=== PATIENT | female | born 1975 | race Caucasian/White ===

== ENCOUNTER 2018-06-27 16:02 | Emergency (ER) | payer SELFPAY ==
[2018-06-27 17:51] LABS: APPEARANCE,URINE SLIGHTLY-CLOUDY; BILIRUBIN,URINE NEGATIVE (NEGATIVE); COLOR,URINE YELLOW; GLUCOSE, URINE NEGATIVE (NEGATIVE); KETONES,URINE NEGATIVE (NEGATIVE); LEUKOCYTE ESTERASE,URINE MODERATE (NEGATIVE); NITRITE,URINE POSITIVE (NEGATIVE); PROTEIN,URINE NEGATIVE (NEGATIVE); URINE SPECIFIC GRAVITY 1.006; UROBILINOGEN,URINE NEGATIVE mg/dL (<2.0)
[2018-06-27] MEDS ORDERED: SULFAMETHOXAZOLE/TRIMETHOPRIM 800-160 MG TABLET PO ONE (18:06)
[2018-06-27 19:22] VITALS: BP 128/73
--- NOTE | 2018-06-27 20:02 | ER Document Report ---
Entered by MOISÉS LINDSEY SCRIBE 06/27/18 1811 Acting as scribe for:YANET MARQUEZ DO ED General - General Chief Complaint: Urinary Problem Stated Complaint: PAINFUL URINATION Time Seen by Provider: 06/27/18 16:53 Primary Care Provider: MAXI BASS MD [NO LOCAL MD] - Follow up as needed Notes: Patient is a 43 year old female with a history of UTIs presents to the emergency department complaining painful urination with associated symptoms of right flank pain, urinary retention and frequency and subjective fevers. She states these symptoms were onset 2 weeks ago and attempted to treat her symptoms at home with cranberry pills and pyridium due to not having any insurance. She reports her right flank pain radiates into her lower abdomen. She states she also began to feel lightheaded today. She states her symptoms are identical to previous UTIs in the past. She denies any vomiting or diarrhea. TRAVEL OUTSIDE OF THE [place] IN LAST 30 DAYS: No - Related Data Allergies/Adverse Reactions: amoxicillin trihydrate [From Augmentin] Allergy (Severe, Verified 06/27/18 16:44) swelling gatifloxacin [From Tequin] Allergy (Severe, Verified 06/27/18 16:44) swelling Potassium Clavulanate * [From Augmentin] Allergy (Severe, Verified 06/27/18 16:44) swelling Past Medical History - General Information source: Patient Last Menstrual Period: 06/06/18 - Social History Smoking Status: Current Every Day Smoker Frequency of alcohol use: None Drug Abuse: None Family History: Malignancy Patient has suicidal ideation: No Patient has homicidal ideation: No GI Medical History: Reports: Hx Gastroesophageal Reflux Disease Musculoskeletal Medical History: Reports Hx Musculoskeletal Deformity, Reports Hx Musculoskeletal Trauma Skin Medical History: Reports Hx Cellulitis Psychiatric Medical History: Reports: Hx Attention Deficit Hyperactivity Disorder, Hx Depression - anxiety Infectious Medical History: Reports: Hx MRSA Past Surgical History: Reports: Hx Breast Surgery, Hx Orthopedic Surgery - carpal tunnel, Hx Tonsillectomy - Immunizations Immunizations up to date: No Hx Diphtheria, Pertussis, Tetanus Vaccination: No Review of Systems - Review of Systems Constitutional: No symptoms reported EENT: No symptoms reported Cardiovascular: See HPI, Lightheaded Respiratory: No symptoms reported Gastrointestinal: No symptoms reported Genitourinary: See HPI Female Genitourinary: No symptoms reported Musculoskeletal: No symptoms reported Skin: No symptoms reported Hematologic/Lymphatic: No symptoms reported Neurological/Psychological: No symptoms reported -: Yes All other systems reviewed and negative Physical Exam - Vital signs Vitals: Temp Pulse Resp BP Pulse Ox 97.6 F 95 16 129/73 H 99 06/27/18 16:21 06/27/18 16:21 06/27/18 16:21 06/27/18 16:21 06/27/18 16:21 - Notes Notes: GENERAL: Alert, interacts well. No acute distress. HEAD: Normocephalic, Atraumatic. EYES: Pupils equal, round, and reactive to light. EOMI. ENT: Oral mucosa moist, tongue midline. NECK: Full range of motion. Supple. Trachea midline. LUNGS: Clear to auscultation bilaterally, no wheezes, rales, or rhonchi. No respiratory distress. HEART: Regular rate and rhythm. No murmurs, gallops, or rubs. ABDOMEN: Soft, non-tender. Non-distended. Bowel sounds present in all 4 quadrants. EXTREMITIES: Moves all four extremities spontaneously. PSYCH: Normal affect, normal mood. BACK: No CVA tenderness to percussion Course - Re-evaluation Re-evalutation: 06/27/18 18:16 Urinalysis shows moderate blood, positive nitrites, moderate leukocyte esterase and only 3 RBCs. Suspect that this is UTI with false positive hematuria from the Pyridium she has been taking. Symptoms are classic for urinary tract infection, concerning for pyelonephritis since they go to her flank. Patient will be started on Bactrim, urine is sent for culture. Discharged home. - Vital Signs Vital signs: Temp Pulse Resp BP Pulse Ox 98.7 F 83 18 128/73 H 98 06/27/18 19:00 06/27/18 19:00 06/27/18 19:00 06/27/18 19:00 06/27/18 19:00 - Laboratory Laboratory results interpreted by me: 06/27/18 17:17 Urine Blood MODERATE H Urine Nitrite POSITIVE H Ur Leukocyte Esterase MODERATE H Discharge - Discharge Clinical Impression: Urinary tract infection Qualifiers: Urinary tract infection type: acute pyelonephritis Qualified Code(s): N10 - Acute pyelonephritis Condition: Stable Disposition: HOME, SELF-CARE Additional Instructions: Pyelonephritis Your evaluation shows evidence of pyelonephritis. This is an infection in the kidney. Typical symptoms are fever, pain in the flank, pain on urination, and frequent urination. Many cases of pyelonephritis can be treated at home. Hospital care may be necessary for patients who are very ill, or elderly or . Pyelonephritis is treated with antibiotics. Be sure to take all the medication as prescribed. Drink plenty of liquids (about three quarts per day). You may take acetaminophen for fever. You should feel significantly improved within two days. You should have a recheck of your urine in about one week to insure that the infection is gone. Return for a re-examination if your symptoms worsen in any way -- such as high fever, shaking chills, severe weakness or dizziness, severe pain, or inability to pass your urine. Prescriptions: Sulfamethoxazole/Trimethoprim [Bactrim Ds Tablet] 1 each PO BID #10 tablet Referrals: MAXI BASS MD [NO LOCAL MD] - Follow up as needed Scribe Attestation: 06/27/18 20:02 I personally performed the services described in the documentation, reviewed and edited the documentation which was dictated to the scribe in my presence, and it accurately records my words and actions. I personally performed the services described in the documentation, reviewed and edited the documentation which was dictated to the scribe in my presence, and it accurately records my words and actions.
== END 2018-06-27 19:00 | disposition home or self-care (01) ==
LOC: ER 16:02
DX: N10 Acute pyelonephritis (principal); R39.198 Other difficulties with micturition; R30.9 Painful micturition, unspecified; R10.9 Unspecified abdominal pain; R33.9 Retention of urine, unspecified; R35.0 Frequency of micturition; R50.9 Fever, unspecified; R10.31 Right lower quadrant pain; F17.200 Nicotine dependence, unspecified, uncomplicated
CPT/HCPCS: 81001; 81025; 87086; 87088; 87186; 99283

== ENCOUNTER 2018-06-28 13:22 | Emergency (ER) | payer SELFPAY ==
[2018-06-28] MEDS ORDERED: METHYLPREDNISOLONE INJ 125 MG/2 ML SDV IM ONE (13:51)
[2018-06-28] MEDS ORDERED: DIPHENHYDRAMINE HCL 50 MG CAPSULE PO ONE (13:51)
[2018-06-28] MEDS ORDERED: FAMOTIDINE 20 MG TABLET PO ONE (13:52)
--- NOTE | 2018-06-28 13:52 | ER Document Report ---
ED General - General Chief Complaint: Allergic Reaction Stated Complaint: SHORT OF BREATH,ITCHING Time Seen by Provider: 06/28/18 13:41 Notes: Patient is a 43-year-old female that presents to the emergency department for chief complaint of allergic reaction. Patient states she was seen in the emergency department last night, and diagnosed with urinary tract infection, started on sulfa which she took the first dose last night, she was to complete review as well for about a week, took a dose this morning, no 30 minutes after she started developed itching over her entire body, and redness all over. Denies any throat swelling, tongue swelling or difficulty breathing or wheezing. She denies having any nausea or vomiting. She is she is unaware she has an allergy to sulfa, however she does have an allergy to fluoroquinolones, as well as penicillins that she is taken in the past that resulted in similar reactions. She denies any new exposure to detergents, clothing, soaps, or any new environmental allergens that she is aware of. Past Medical History: Denies chronic medical conditions Past Surgical History: Tonsillectomy and adenoidectomy, carpal tunnel release Social History: Admits to smoking cigarettes, denies alcohol or drug use. Family History: Reviewed and noncontributory for presenting illness Allergies: Reviewed, see documented allergy list. REVIEW OF SYSTEMS: Other than noted above, the 12 point review of systems was reviewed with the patient and were negative, all pertinent findings are included in the HPI. PHYSICAL EXAMINATION: Vital signs reviewed, nursing noted reviewed. GENERAL: Patient appears uncomfortable HEAD: Atraumatic, normocephalic. EYES: Eyes appear normal, extraocular movements intact, sclera anicteric, conjunctiva are normal. ENT: nares patent, oropharynx clear without exudates. Moist mucous membranes. No tongue or uvular edema, no stridor NECK: Normal range of motion, supple without lymphadenopathy LUNGS: Breath sounds clear to auscultation bilaterally and equal. No wheezes rales or rhonchi. HEART: Regular rate and rhythm without murmurs ABDOMEN: Soft, nontender, normoactive bowel sounds. No rebound, guarding, or rigidity. No masses appreciated. EXTREMITIES: Nontender, good range of motion, no pitting or edema. NEUROLOGICAL: No focal neurological deficits. Moves all extremities spontaneously Motor and sensory grossly intact on exam. PSYCH: Normal mood, normal affect. SKIN: Warm, Dry, normal turgor, diffuse macular papular rash noted on the upper extremities and the abdomen and back. TRAVEL OUTSIDE OF THE [place] IN LAST 30 DAYS: No - Related Data Allergies/Adverse Reactions: amoxicillin trihydrate [From Augmentin] Allergy (Severe, Verified 06/28/18 13:26) swelling gatifloxacin [From Tequin] Allergy (Severe, Verified 06/28/18 13:26) swelling Potassium Clavulanate * [From Augmentin] Allergy (Severe, Verified 06/28/18 13:26) swelling Past Medical History - Social History Smoking Status: Current Every Day Smoker Frequency of alcohol use: None Drug Abuse: None Family History: Malignancy Patient has suicidal ideation: No Patient has homicidal ideation: No Renal/ Medical History: Denies: Hx Peritoneal Dialysis GI Medical History: Reports: Hx Gastroesophageal Reflux Disease Musculoskeletal Medical History: Reports Hx Musculoskeletal Deformity, Reports Hx Musculoskeletal Trauma Skin Medical History: Reports Hx Cellulitis Psychiatric Medical History: Reports: Hx Attention Deficit Hyperactivity Disorder, Hx Depression - anxiety Infectious Medical History: Reports: Hx MRSA Past Surgical History: Reports: Hx Breast Surgery, Hx Orthopedic Surgery - carpal tunnel, Hx Tonsillectomy - Immunizations Immunizations up to date: No Hx Diphtheria, Pertussis, Tetanus Vaccination: No Physical Exam - Vital signs Vitals: Temp Pulse Resp BP Pulse Ox 97.9 F 133 H 36 H 122/68 94 06/28/18 13:34 06/28/18 13:34 06/28/18 13:34 06/28/18 13:34 06/28/18 13:34 Course - Re-evaluation Re-evalutation: Patient seen and examined vital signs reviewed. Patient was treated with IM Solu-Medrol, and oral Benadryl and Pepcid The patient was re-evaluated and was improved Evaluation was most consistent with acute allergic reaction, urinary tract infection, prior cultures demonstrated gram-negative rods, no sensitivities back, will place her on doxycycline for 7 days, and given a prescription for prednisone to help avoid any further allergic reaction. She is advised to avoid sulfa and Pyridium at this point. Results were discussed with the patient at this point, after careful consideration I feel that that patient can be discharged from the emergency department, the patient was educated treatments and reasons to return to the emergency department based on their presumed diagnosis as noted above, they were advised to followup with a primary care physician in 2-3 days. Patient was agreeable to plan of care. *Note is created using voice recognition software and may contain spelling, syntax or grammatical errors. - Vital Signs Vital signs: Temp Pulse Resp BP Pulse Ox 97.9 F 133 H 36 H 122/68 94 06/28/18 13:34 06/28/18 13:34 06/28/18 13:34 06/28/18 13:34 06/28/18 13:34 Discharge - Discharge Clinical Impression: Allergic reaction Qualifiers: Encounter type: initial encounter Qualified Code(s): T78.40XA - Allergy, unspecified, initial encounter UTI (urinary tract infection) Qualifiers: Urinary tract infection type: site unspecified Hematuria presence: without hematuria Qualified Code(s): N39.0 - Urinary tract infection, site not specified Condition: Stable Disposition: HOME, SELF-CARE Instructions: Urinary Tract Infection ([facility]), Acute Allergic Reaction to Drugs ([facility]) Additional Instructions: Please avoid sulfa medications including Bactrim, and avoid taking any further Pyridium at this point. You have been prescribed doxycycline 100 mg twice daily, take this for 7 days for your urinary tract infection. Please complete the entire course of prednisone as prescribed as well, to help improve any itching and further allergic reaction, he can also take [id number] Benadryl 25-50 mg every 8 hours to help with itching. Prescriptions: Doxycycline Hyclate [Vibramycin] 100 mg PO BID #14 capsule Prednisone [Deltasone 20 mg Tablet] 2 tab PO DAILY 4 Days #8 tablet Referrals: COLLEEN TORRES MD [[facility]FF] - Follow up in 3-5 days (or your primary care. )
[2018-06-28 15:35] VITALS: BP 127/49
== END 2018-06-28 15:43 | disposition home or self-care (01) ==
LOC: ER 13:22
DX: T78.40XA Allergy, unspecified, initial encounter (principal); R21 Rash and other nonspecific skin eruption; L29.9 Pruritus, unspecified; X58.XXXA Exposure to other specified factors, initial encounter; N39.0 Urinary tract infection, site not specified; F17.200 Nicotine dependence, unspecified, uncomplicated; Z88.1 Allergy status to other antibiotic agents
CPT/HCPCS: 99283; 96372; J2930

== ENCOUNTER 2020-03-25 17:19 | Emergency (ER) | payer SELFPAY ==
[2020-03-25] MEDS ORDERED: IPRATROPIUM/ALBUTEROL 0.5-2.5 MG/3 ML AMPUL NEB ONE ×2 (17:49→22:17)
[2020-03-25] MEDS ORDERED: METHYLPREDNISOLONE INJ 125 MG/2 ML SDV IV ONE (17:49)
[2020-03-25] MEDS ORDERED: RINGERS SOLUTION,LACTATED 1,000 ML IV ONE (17:51)
--- NOTE | 2020-03-25 17:51 | ER Document Report ---
ED Medical Screen (RME) - General Chief Complaint: Shortness Of Breath Stated Complaint: COUGH, CONGESTION, FEVER, WHEEZING Time Seen by Provider: 03/25/20 17:43 Mode of Arrival: Ambulatory Information source: Patient Notes: HPI; 44-year-old female remote history of asthma presents to the emergency room complaining of shortness of breath with cough and congestion for the past 8 days. Subjective fever. Multiple [id number] medications without relief. No direct COVID-19 exposure. States her children had a positive exposure a month ago and had to quarantine for 2 weeks they were not tested. There has been no other COVID-19 exposure. PE: Alert and oriented x3. Mild distress noted. Lungs: Rhonchi and wheezes throughout no rales. Heart: Tachycardic without murmurs, rubs, gallops. I have greeted and performed a rapid initial assessment of this patient. A comprehensive ED assessment and evaluation of the patient, analysis of test results and completion of the medical decision making process will be conducted by additional ED providers. I have specifically instructed the patient or family members with the patient to immediately return to any nursing staff should anything change in the patient's condition or with their chief complaint. TRAVEL OUTSIDE OF THE [place] IN LAST 30 DAYS: No - Related Data Allergies/Adverse Reactions: amoxicillin trihydrate [From Augmentin] Allergy (Severe, Verified 06/28/18 13:26) swelling gatifloxacin [From Tequin] Allergy (Severe, Verified 06/28/18 13:26) swelling Potassium Clavulanate * [From Augmentin] Allergy (Severe, Verified 06/28/18 13:26) swelling sulfamethoxazole [From Bactrim] Allergy (Verified 03/25/20 17:39) Shortness of Breath trimethoprim [From Bactrim] Allergy (Verified 03/25/20 17:39) Shortness of Breath Home Medications: cymbalta, adderall Past Medical History - Social History Chew tobacco use (# tins/day): No Frequency of alcohol use: None Drug Abuse: None Renal/ Medical History: Denies: Hx Peritoneal Dialysis GI Medical History: Reports: Hx Gastroesophageal Reflux Disease Musculoskeltal Medical History: Reports Hx Musculoskeletal Deformity, Reports Hx Musculoskeletal Trauma Skin Medical History: Reports Hx Cellulitis Psychiatric Medical History: Reports: Hx Attention Deficit Hyperactivity Disorder, Hx Depression - anxiety Infectious Medical History: Reports: Hx MRSA Past Surgical History: Reports: Hx Breast Surgery, Hx Orthopedic Surgery - carpal tunnel, Hx Tonsillectomy - Immunizations Immunizations up to date: No Hx Diphtheria, Pertussis, Tetanus Vaccination: No Physical Exam - Vital signs Vitals: Temp Pulse Resp BP Pulse Ox 98.6 F 115 H 20 145/90 H 100 03/25/20 17:40 03/25/20 17:40 03/25/20 17:40 03/25/20 17:40 03/25/20 17:40 Course - Vital Signs Vital signs: Temp Pulse Resp BP Pulse Ox 98.6 F 115 H 20 145/90 H 100 03/25/20 17:40 03/25/20 17:40 03/25/20 17:40 03/25/20 17:40 03/25/20 17:40
--- NOTE | 2020-03-25 20:33 | RADIOLOGY REPORT (SQ) ---
EXAM DESCRIPTION: CHEST SINGLE VIEW CLINICAL HISTORY: 44 years Female, cough COMPARISON: None. FINDINGS: Lungs: Lungs are clear. No pneumonia or edema. No pneumothorax or pleural effusion. Mediastinum: Cardiac and mediastinal silhouette are normal. Bones: Healed right-sided rib fractures present. IMPRESSION: No acute process
[2020-03-25] MEDS ORDERED: DEXAMETHASONE SOD PHOSPHATE INJ 4 MG/1 ML VIAL IM ONE (21:50)
--- NOTE | 2020-03-25 21:51 | ER Document Report ---
ED Respiratory Problem - General Chief Complaint: Shortness Of Breath Stated Complaint: COUGH, CONGESTION, FEVER, WHEEZING Time Seen by Provider: 03/25/20 17:43 Mode of Arrival: Ambulatory Notes: CHIEF COMPLAINT: Cough congestion shortness of breath for 8 days HPI: 44-year-old female who smokes with a remote history of asthma 10 years ago who does not use inhalers on a consistent basis presenting for 8 days of cough and cold symptoms with wheezing and shortness of breath. Has continued to smoke despite her illness. No chest pain. No abdominal pain nausea vomiting. Has used ombu-pbe-hxzwymd medications for symptoms. ROS: See HPI - all other systems were reviewed and are otherwise negative Constitutional: no fever Eyes: no drainage, no blurred vision ENT: no runny nose, no sore throat Cardiovascular: no chest pain Resp: + SOB, + cough GI: no vomiting, no diarrhea, no abdominal pain : no dysuria Integumentary: no rash Allergy: no hives Musculoskeletal: no extremity pain or swelling Neurological: no numbness/tingling, no weakness MEDICATIONS: I agree with the patient medications as charted by the RN. ALLERGIES: I agree with the allergies as charted by the RN. PAST MEDICAL HISTORY/PAST SURGICAL HISTORY: Reviewed and agree as charted by RN. SOCIAL HISTORY: Reviewed and agree as charted by RN. FAMILY HISTORY: No significant familial comorbid conditions directly related to patient complaint EXAM: Reviewed vital signs as charted by RN. CONSTITUTIONAL: Alert and oriented and responds appropriately to questions. Well-appearing; well-nourished HEAD: Normocephalic; atraumatic EYES: PERRL; Conjunctivae clear, sclerae non-icteric ENT: normal nose; no rhinorrhea; moist mucous membranes; pharynx without lesions noted, no uvula edema or deviation, no tonsillar hypertrophy, phonation normal NECK: Supple without meningismus; non-tender; no cervical lymphadenopathy, no masses CARD: Mild tachycardia; no murmurs, no clicks, no rubs, no gallops; symmetric distal pulses RESP: Normal chest excursion without splinting or tachypnea; breath sounds noted to have expiratory wheezing posterior lung hagen, no rhonchi, no rales, pulse oximetry ABD/GI: Normal bowel sounds; non-distended; soft, non-tender, no rebound, no guarding; no palpable organomegaly or masses. BACK: The back appears normal and is non-tender to palpation, there is no CVA tenderness EXT: Normal ROM in all joints; no cyanosis, no effusions, no edema SKIN: Normal color for age and race; warm; dry; good turgor; no acute lesions noted NEURO: Moves all extremities equally; Motor and sensory function intact PSYCH: The patient's mood and manner are appropriate. Grooming and personal hygiene are appropriate. MDM: 44-year-old female who smokes presenting with acute bronchospasm. No fever. Will give breathing treatment, steroids, check Covid and influenza. Chest x-ray ordered via triage process negative for acute findings TRAVEL OUTSIDE OF THE [place] IN LAST 30 DAYS: No - Related Data Allergies/Adverse Reactions: amoxicillin trihydrate [From Augmentin] Allergy (Severe, Verified 06/28/18 13:26) swelling gatifloxacin [From Tequin] Allergy (Severe, Verified 06/28/18 13:26) swelling Potassium Clavulanate * [From Augmentin] Allergy (Severe, Verified 06/28/18 13:26) swelling sulfamethoxazole [From Bactrim] Allergy (Verified 03/25/20 17:39) Shortness of Breath trimethoprim [From Bactrim] Allergy (Verified 03/25/20 17:39) Shortness of Breath Home Medications: cymbalta, adderall Past Medical History - General Information source: Patient - Social History Smoking Status: Current Every Day Smoker Chew tobacco use (# tins/day): No Frequency of alcohol use: None Drug Abuse: None Family History: Malignancy Renal/ Medical History: Denies: Hx Peritoneal Dialysis GI Medical History: Reports: Hx Gastroesophageal Reflux Disease Musculoskeletal Medical History: Reports Hx Musculoskeletal Deformity, Reports Hx Musculoskeletal Trauma Skin Medical History: Reports Hx Cellulitis Psychiatric Medical History: Reports: Hx Attention Deficit Hyperactivity Disorder, Hx Depression - anxiety Infectious Medical History: Reports: Hx MRSA Past Surgical History: Reports: Hx Breast Surgery, Hx Orthopedic Surgery - carpal tunnel, Hx Tonsillectomy - Immunizations Immunizations up to date: No Hx Diphtheria, Pertussis, Tetanus Vaccination: No Physical Exam - Vital signs Vitals: Temp Pulse Resp BP Pulse Ox 98.6 F 115 H 20 145/90 H 100 03/25/20 17:40 03/25/20 17:40 03/25/20 17:40 03/25/20 17:40 03/25/20 17:40 Course - Re-evaluation Re-evalutation: 03/25/20 23:50 Flu test negative, chest x-ray negative, patient feels better after breathing treatment. Will discharge on Decadron, albuterol, follow-up PCP, stop smoking 03/25/20 23:50 She will be a person under investigation for COVID-19 at this time will self quarantine at home - Vital Signs Vital signs: Temp Pulse Resp BP Pulse Ox 98.7 F 109 H 20 132/89 H 99 03/25/20 22:23 03/25/20 22:23 03/25/20 22:23 03/25/20 22:23 03/25/20 22:23 Discharge - Discharge Clinical Impression: Person under investigation for COVID-19, Acute bronchospasm, Tobacco use Condition: Stable Disposition: HOME, SELF-CARE Additional Instructions: Your influenza test and chest x-ray did not show acute emergent findings. You are considered a person under investigation for COVID-19 at this time self quarantine at home pending your test results which may take 2 to 5 days. You will be notified by someone at the hospital about your results. Use the albuterol inhaler 2 puffs every 4 hours as needed for shortness of breath. Take the Decadron as prescribed. If you develop worsening symptoms return for reevaluation Prescriptions: Dexamethasone [Decadron 4 Mg Tablet] 4 mg PO DAILY #7 tablet Albuterol Sulfate [Proair HFA Inhalation Aerosol 8.5 gm MDI] 2 puff IH Q4H PRN #1 mdi PRN Reason:
[2020-03-25 23:43] LABS: A TYPE INFLUENZA AG NEGATIVE (NEGATIVE); B INFLUENZA AG NEGATIVE (NEGATIVE)
[2020-03-26 00:27] VITALS: BP 133/77
== END 2020-03-26 00:25 | disposition home or self-care (01) ==
LOC: ER 17:19
DX: J45.909 Unspecified asthma, uncomplicated (principal); R05 Cough; R06.02 Shortness of breath; F17.200 Nicotine dependence, unspecified, uncomplicated; F90.9 Attention-deficit hyperactivity disorder, unspecified type; F32.9 Major depressive disorder, single episode, unspecified; F41.9 Anxiety disorder, unspecified; Z79.899 Other long term (current) drug therapy; Z88.0 Allergy status to penicillin; Z88.1 Allergy status to other antibiotic agents; Z20.828 Contact with and (suspected) exposure to other viral communicable diseases
CPT/HCPCS: 94640; 99284; 96372; 87635; 87804; 71045; J1100; C9803